=== PATIENT | male | born 2005 | race Hispanic/Latino ===

== ENCOUNTER → 2023-11-05 | Outpatient (CLI) | payer OTHER | END | disposition home or self-care (01) | LOC: LAB 09:23 | PROVIDERS: ATTEND Hospitalist | DX: Z11.52 Encounter for screening for COVID-19 (principal) | CPT/HCPCS: 87426; 87635 ==

== ENCOUNTER → 2023-12-02 | Outpatient (CLI) | payer OTHER | END | disposition home or self-care (01) | LOC: LAB 15:00 | PROVIDERS: ATTEND Hospitalist | DX: Z11.52 Encounter for screening for COVID-19 (principal) | CPT/HCPCS: 87426 ==

== ENCOUNTER → 2024-05-18 | Outpatient (CLI) | payer OTHER | END | disposition home or self-care (01) | LOC: LAB 10:47 | PROVIDERS: ATTEND Hospitalist | DX: U07.1 COVID-19 (principal) | CPT/HCPCS: 87426 ==

== ENCOUNTER 2025-04-19 18:48 | Emergency (ER) | payer SELFPAY ==
[~2025-04-19] VITALS: Ht 180.3 cm; Wt 142.4 kg
--- NOTE | 2025-04-19 19:00 | ERN ---
ED Note History of Present Illness Stated Complaint: LEFT ANKLE PAIN Chief Complaint: Ankle Problem Time Seen by MD: 18:50 Dictation: PATIENT IS A 19-YEAR-OLD MALE HERE WITH LEFT LATERAL ANKLE PAIN SWELLING AND ECCHYMOSIS ONSET WAS LAST THURSDAY. HE STATES I AM SURE A SPRAINED IT BECAUSE I DO NOT USED TO DEALING WITH SPRAINS ALL THE TIME. HE STATES THEY TWISTED IT AND HAS BEEN ABLE TO WEIGHT BEAR SINCE HE SAID IT GOT BETTER AFTER ICE AND ELEVATION FOR DAY OR TWO THEN IT GOT WORSE IN THE LAST TWO DAYS. HE HAS NOT BEEN TO AN EMERGENCY ROOM HER PRIMARY CARE DOCTOR. NOT TAKE ANYTHING PRIOR TO ARRIVAL PAIN HE IS CURRENTLY ON SPLINT Allergies: Coded Allergies: No Known Allergies (Unverified Allergy, Unknown, 04/19/25) Past Medical History Past Medical History: No Pertinent History Surgical History: None RN Note Reviewed/Agreed w/PFSH: Yes Review of System Dictation CONSTITUTIONAL: NEGATIVE EXCEPT FOR HPI HEAD/FACE: NEGATIVE EXCEPT FOR HPI EENT: NEGATIVE EXCEPT FOR HPI RESPIRATORY: NEGATIVE EXCEPT FOR HPI GASTROINTESTINAL/ABDOMINAL: NEGATIVE EXCEPT FOR HPI GENITOURINARY: NEGATIVE EXCEPT FOR HPI MUSCULOSKELETAL: NEGATIVE EXCEPT FOR HPI LEFT LATERAL ANKLE PAIN SWELLING ECCHYMOSIS INTEGUMENTARY: NEGATIVE EXCEPT FOR HPI NEUROLOGICAL/PSYCH: NEGATIVE EXCEPT FOR HPI HEMATOLOGIC/LYMPHATIC: NEGATIVE EXCEPT FOR HPI ALL SYSTEMS NEGATIVE, EXCEPT NOTED ABOVE. 13 POINT REVIEW OF SYSTEMS ASSESSED AND ALL NEGATIVE EXCEPT FOR ABOVE. Initial Vital Sign VS Vital Signs Date Time Temp Pulse Resp B/P (MAP) Pulse Ox O2 Delivery O2 Flow Rate FiO2 04/19/25 18:50 97.9 79 16 133/84 97 Room Air 0 Physical Exam Dictation VITAL SIGNS REVIEWED GENERAL APPEARANCE: ALERT, ORIENTED X 3, MILD ACUTE DISTRESS, WELL DEVELOPED, NOURISHED. MORBID OBESITY HEAD AND FACE: NON-TRAUMATIC. EYES: PERRL, PINK CONJUNCTIVAS, EYELID NO TRAUMA, ANTERIOR CHAMBER WITH ARCUS SENILIS. EARS: PINNAS INTACT AND NO SIGNS OF TRAUMA OR ERYTHEMA EAR CANALS CLEAR AND NO DISCHARGE TM NO ERYTHEMA NOSE: NO DISCHARGE, NO BLEEDING. OROPHARYNX: MOUTH NORMAL, TONGUE PINK, PHARYNX CLEAR,NO ERYTHEMA, TONSILS NO EXUDATES, NO ABSCESSES NOTED, MUCOUS MEMBRANE MOIST NECK: SUPPLE, NON-TENDER, NO THYROMEGALY, NO MASSES, NO JVD, NO BRUITS BREAST:DEFERRED CHEST:NO TENDERNESS, NO CREPITUS, NO PARADOXICAL MOVEMENT, NO RETRACTIONS LUNGS:CLEAR, WELL-VENTILATED, SYMMETRIC, NO RALES, NO WHEEZING, NO RHONCHI, NO STRIDOR, GOOD BREATH SOUNDS BILATERALLY HEART: REGULAR RATE, REGULAR RHYTHM, NO MURMUR, NO GALLOPS VASCULAR: NO PERIPHERAL EDEMA, ABDOMEN: SOFT, POSITIVE BOWEL SOUNDS, NONDISTENDED, NO GUARDING, NONTENDER, NO REBOUND, NO MASSES NO HEPATOMEGALY, NO SPLENOMEGALY, NO FONTENOT'S SIGN, NO HERNIAS. RECTAL: DEFERRED GENITAL: DEFERRED NEUROLOGICAL: NORMAL SPEECH, MOTOR FUNCTION INTACT, SENSORY FUNCTION INTACT MUSCULOSKELETAL: NECK NONTENDER, FULL RANGE OF MOTION, BACK NONTENDER, FULL RANGE OF MOTION, EXTREMITIES: LEFT LATERAL MALLEOLAR PAIN TENDERNESS WITH SWELLING AND ECCHYMOSIS NOTED. DECREASED RANGE OF MOTION. NEUROVASCULAR CMS INTACT SKIN: COLOR PINK, DRY, NO TURGOR, NO RASH, NO LACERATIONS, NO ABRASIONS, NO CONTUSIONS. LYMPHATIC: DEFERRED Results (Laboratory/Radiology) Laboratory/Radiology LEFT ANKLE X-RAY NEGATIVE EXCEPT FOR SOFT TISSUE SWELLING Labs Reviewed?: Yes ED Course ED Course Orders Procedure Category Date Status Time Volar Splint CHARITO.ER 04/19/25 In Process 18:57 Ibuprofen 800 Mg Tab PHA 04/19/25 Complete (Motrin) 19:00 Ankle Comp 3vws Lt RAD 04/19/25 Taken 18:57 Current Medications Medications (Trade) Dose Ordered Sig/Edwin Route PRN Reason Start Time Stop Time Status Last Admin Dose Admin Ibuprofen (moTRIN) 800 mg ONCE ONCE PO 04/19/25 19:00 04/19/25 19:01 DC Vital Signs Date Time Temp Pulse Resp B/P (MAP) Pulse Ox O2 Delivery O2 Flow Rate FiO2 04/19/25 18:50 97.9 79 16 133/84 97 Room Air 0 1915/VOLAR SPLINT PLACED BY TECH. NEUROVASCULAR CMS INTACT POST PLACEMENT PATIENT ALREADY HAS A SET OF CRUTCHES WITH HIM. DISCHARGED HOME WITH PAIN MANAGEMENT AND TOLD TO FOLLOW UP WITH IN THE NEXT ONE OR TWO DAYS. Medical Decision Making MDM MEDICAL DECISION-MAKING BASED ON X-RAY OF LEFT ANKLE AND JOINT IMMOBILIZATION. SPRAIN WITHOUT FRACTURE DISCHARGED HOME WITH SPLINT/IBUPROFEN/CRUTCHES REFERRED TO DR. SKAGGS FOR FOLLOW UP DX & DISP Disposition: Discharge Departure Impression: Primary Impression: Moderate left ankle sprain Additional Impression: Fall Condition: Stable Scripts Ibuprofen (Ibuprofen 800 mg Tab) 800 Mg Tab 800 MG PO Q8H PRN for fever or pain, #30 TAB 0 Refills Prov: LISA LLANES NP 04/19/25 Additional Instructions: FOLLOW-UP WITH PRIMARY CARE PROVIDER IN 1 TO 2 DAYS. TAKE MEDICATIONS DIRECTED HERE IN THE EMERGENCY ROOM. OKAY TO CONTINUE HOME MEDICATIONS UNLESS OTHERWISE DISCUSSED DURING YOUR VISIT IN THE EMERGENCY ROOM TODAY. RETURN TO YOUR NEAREST EMERGENCY ROOM IF SYMPTOMS WORSEN OR IF THERE IS NO IMPROVEMENT. CALL 911 IF YOU NEED IMMEDIATE ASSISTANCE. TAKE TYLENOL OR MOTRIN [id number] NEEDED AND IF NO CONTRAINDICATIONS ARE PRESENT. INCREASE ORAL HYDRATION. A WOUND CULTURE OR URINE CULTURE WAS ORDERED HERE IN THE EMERGENCY ROOM DEPARTMENT PLEASE FOLLOW-UP WITH PRIMARY CARE PROVIDER AND ADVISE THEM TO GET REPEAT PORTS FROM OUR FACILITY. IF YOU HAD ANY JOSE WRAP/SPLINTS TH AT WERE APPLIED HERE, PLEASE DO NOT REMOVE THEM UNTIL YOU SEE YOUR PRIMARY CARE OR SPECIALTY. SPLINT/CRUTCHES/NO WEIGHT-BEARING UNTIL CLEARED BY ORTHOPEDICS, CALL FOR AN APPOINTMENT TOMORROW. TAKE IBUPROFEN NEEDED FOR PAIN AND ELEVATE ANKLE MUCH POSSIBLE. Referrals: JASE PIERSON MD (PCP) JUAN JOSE SKAGGS MD Time of Disposition: 19:18 and I agree with, Diagnosis and Plan LISA LLANES NP Apr 19, 2025 19:00
[2025-04-19] MEDS ORDERED: IBUP-2077 PO (19:19)
[2025-04-19 19:25] VITALS: BP 130/80; PULSE 75; RESP 16; TEMP 98.3; O2SAT 98
[2025-04-19] MEDS: ibuPROFEN 800 MG TAB PO ONE (19:32)
--- NOTE | 2025-04-19 19:42 | HMCIMG ---
Exam Type: ANKLE COMP 3VWS LT Clinical Information: LEFT LATERAL ANKLE PAIN SWELLING AFTER TWISTING IT ON LAST ANITA Comparison: None Findings: No fractures are seen. There is soft tissue swelling over the medial lateral malleolus consistent with ankle sprain. IMPRESSION: Ankle sprain.
--- NOTE | 2025-04-19 19:45 | NUR ---
UNABLE TO DEPART DUE TO REGISTRATION PROCESS
== END 2025-04-19 19:52 | disposition home or self-care (01) ==
LOC: EDH 18:48
DX: S93.402A Sprain of unspecified ligament of left ankle, initial encounter (principal); X50.1XXA Overexertion from prolonged static or awkward postures, initial encounter; Y93.89 Activity, other specified; Y92.89 Other specified places as the place of occurrence of the external cause; Y99.8 Other external cause status
CPT/HCPCS: 29515; 73610; 99283